=== PATIENT | female | born 1940 | race Caucasian/White ===

== ENCOUNTER 2017-12-26 20:18 | Emergency (ER) | payer MEDICARE ==
[~2017-12-26 20:18] MED LIST: ISOVUE-370 76%-LOCM 1 ML ONE
[2017-12-26 21:22] LABS: #Basophils 0.1 thou/uL (0.0-0.2); #Eosinphils 0.1 thou/uL (0.0-0.7); #Lymphocytes 2.2 thou/uL (1.20-3.40); #Monocytes 0.7 thou/uL (0.11-0.59); #Neutrophils 3.8 thou/uL (1.40-6.50); %Basophils 0.9 % (0.0-1.0); %Lymphocytes 32.1 % (21.0-51.0); %Monocytes 9.8 % (0.0-10.0); %Neutrophils 55.3 % (42.0-75.0); Hemoglobin 14.9 g/dL (12.0-16.0); Mean Corpuscular HGB CONC 35.4 g/dL (32.0-36.0); Mean Corpuscular Hemoglobin 33.3 pg (27.0-31.0); Mean Corpuscular Volume 94.1 fL (78.0-98.0); Mean Platelet Volume 6.5 fL (7.4-10.4); Platelet Count 165 thou/uL (130-400); RBC Distribution Width 11.8 % (11.5-14.5); Red Blood Cell (RBC) Count 4.47 mill/uL (4.20-5.40); White Blood Cell (WBC) Count 6.9 thou/uL (4.8-10.8)
[2017-12-26 21:36] LABS: ALT (SGPT) 24 U/L (8-55); AST (SGOT) 29 U/L (5-34); Albumin 4.7 g/dL (3.4-4.8); Alkaline Phosphatase 59 U/L (40-150); Anion Gap 16 mmol/L (10-20); BUN (Urea Nitrogen) 18 mg/dL (9.8-20.1); Bilirubin, Total 0.5 mg/dL (0.2-1.2); CK (CPK) 68 U/L (29-168); Calc. Creatinine Clearance 0 mL/min (70-130); Calcium 9.4 mg/dL (7.8-10.44); Carbon Dioxide 25 mmol/L (23-31); Chloride 105 mmol/L (98-107); Estimated GFR-MDRD 60; Globulin 2.3 g/dL (2.4-3.5); Glucose 100 mg/dL (83-110); Lipase 11 U/L (8-78); Sodium 142 mmol/L (136-145)
[2017-12-26 21:40] LABS: CKMB 1.9 ng/mL (0-6.6); Troponin I Less than 0.010 ng/mL (< 0.028)
--- NOTE | 2017-12-26 22:46 | ULT ---
RIGHT UPPER QUADRANT ULTRASOUND: Date: 12-26-17 Comparison: None. History: Right upper quadrant pain. Technique: Multiplanar grayscale sonographic imaging of the right upper quadrant provided. 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 The pancreas appears grossly unremarkable. No focal liver lesion or intrahepatic biliary dilatation. No gallbladder wall thickening or pericholecystic fluid. No gallstones are noted. The common bile duct measures 4 mm, within normal limits. Right kidney measures 9.7 cm craniocaudal dimension and demonstrates no stone, hydronephrosis, or mas s. IMPRESSION: 1. Unremarkable right upper quadrant ultrasound. POS: [facility]
--- NOTE | 2017-12-26 23:07 | CT ---
CT OF ABDOMEN AND PELVIS: Date: 12-26-17 Comparison: None. History: Right upper quadrant pain radiating to the back. Technique: Serial axial CT imaging obtained at 5 mm intervals from lung bases through pubic symphysis with IV contrast. Coronal reformatted imaging obtained. FINDINGS: The visualized lung bases are unremarkable. There is a small hiatal hernia noted. No free intraperito eldon air or fluid. The liver, gallbladder, spleen, pancreas, adrenal glands, and kidneys demonstrate no acute findings. There is mild fatty atrophy of the pancreas. There is mild descending colonic diverticulosis without evidence for diverticulitis. The appendix is normal. No evidence for bowel inflammatory change or bowel obstruction. There is no lymphadenopathy in the abdomen or pelvis. There is multilevel lower lumbar spine facet hypertrophic change. There is multilevel disc space narr owing with degenerative endplate change noted within the lower lumbar spine as well. IMPRESSION: Multiple incidental findings as detailed above. No acute findings are seen. POS: [facility]
[2017-12-26 23:16] LABS: Bilirubin Negative (Negative); Blood, Urine Small (Negative); Clarity CLOUDY (Clear); Glucose, Urine (Dipstick) Negative (Negative); Leukocyte Large (Negative); Nitrite Positive (Negative); Protein, Urine (Dipstick) Negative (Neg-Trace); Specific Gravity, Urine 1.012 (1.002-1.036); Urobilinogen 0.2 mg/dL (0.2-1.0)
[2017-12-26 23:17] LABS: Bacteria/HPF 4+ HPF (None Seen); Hyaline Casts/LPF 0-3 HYALINE CAST LPF (0-3 Hyaline); Squamous Epithelial None Seen HPF (0-3)
== END 2017-12-26 23:37 | disposition home or self-care (01) ==
LOC: ERS 20:18
DX: N39.0 Urinary tract infection, site not specified (principal); R10.13 Epigastric pain; E03.9 Hypothyroidism, unspecified; Z79.899 Other long term (current) drug therapy; I50.1 Left ventricular failure, unspecified
CPT/HCPCS: 36415; 74177; 76705; 80053; 81003; 81015; 82550; 82553; 83690; 84484; 85025; 87077; 87086; 87186; 93005

== ENCOUNTER 2018-08-29 14:25 | Outpatient (CLI) | payer MEDICARE | END 2018-08-29 14:26 | disposition home or self-care (01) | LOC: ULT 14:25 | PROVIDERS: ATTEND Internal Medicine | DX: R01.1 Cardiac murmur, unspecified (principal); I08.3 Combined rheumatic disorders of mitral, aortic and tricuspid valves | CPT/HCPCS: 93306 ==

== ENCOUNTER 2025-01-01 01:45 | Inpatient (IN) | payer MEDICARE ==
[2025-01-01 03:07] LABS: #Basophils 0.04 10x3/uL (0.0-0.2); #Eosinophils 0.19 10x3/uL (0.0-0.7); #Monocytes 0.62 10x3/uL (0.11-0.59); #Neutrophils 4.37 10x3/uL (1.40-6.50); %Basophils 0.6 % (0.0-1.0); %Eosinophils 2.8 % (0.0-10.0); %Lymphocytes 21.6 % (21.0-51.0); %Monocytes 9.3 % (0.0-10.0); %Neutrophils 65.6 % (42.0-75.0); Hematocrit 38.8 % (36.0-47.0); Hemoglobin 13.2 g/dL (12.0-16.0); Mean Corpuscular Hemoglobin 30.3 pg (27.0-31.0); Mean Corpuscular Volume 89.2 fL (78.0-98.0); Platelet Count 121 10x3/uL (130-400); Red Blood Cell (RBC) Count 4.35 mill/uL (4.20-5.40); White Blood Cell (WBC) Count 6.67 10x3/uL (4.8-10.8)
[2025-01-01 03:22] LABS: INR-International Normal Ratio 1.1; PTT 29.3 sec (22.9-36.1); Prothrombin Time 14.2 sec (12.0-14.7)
[2025-01-01 03:34] LABS: ALT (SGPT) 17 U/L (Less than 34); AST (SGOT) 28 U/L (11-34); Albumin 3.8 g/dL (3.1-4.5); Alkaline Phosphatase 67 U/L (40-110); Anion Gap 14 mmol/L (10-20); BUN (Urea Nitrogen) 24 mg/dL (9.8-20.1); Bilirubin, Total 0.5 mg/dL (0.3-1.2); Calc. Creatinine Clearance 0 mL/min (70-130); Calcium 8.8 mg/dL (7.8-10.44); Carbon Dioxide 24 mmol/L (23-31); Chloride 101 mmol/L (98-107); Globulin 2.1 g/dL (2.4-3.5); Glucose 100 mg/dL (83-110); Potassium 4.0 mmol/L (3.5-5.1); Sodium 135 mmol/L (136-145)
[2025-01-01 05:32] LABS: Magnesium 2.3 mg/dL (1.6-2.6)
[2025-01-01] MEDS ORDERED: Ketorolac Tromethamine 30 MG (1 mL) VIAL IVP PRN (08:45)
[2025-01-01] MEDS ORDERED: Acetaminophen 325 MG TAB PO PRN (08:45)
[2025-01-01] MEDS ORDERED: Iopamidol 370 76% 100 ML VIAL ONE (10:02)
[2025-01-01 10:31] VITALS: BMI 29.8
[2025-01-01] MEDS: Famotidine 20 MG TAB PO SCH (12:04)
[2025-01-01] MEDS: Gabapentin 300 MG CAP PO SCH (20:54)
[2025-01-01] MEDS: diphenhydrAMINE 25 MG CAP PO PRN (22:01)
[2025-01-02] MEDS: Spironolactone 25 MG TAB PO SCH (08:48)
[2025-01-02 16:31] VITALS: BMI 29.8
[2025-01-02] MEDS: Melatonin 3 MG TAB PO PRN (20:19)
[2025-01-03 05:55] LABS: Anion Gap 11 mmol/L (10-20); BUN (Urea Nitrogen) 18 mg/dL (9.8-20.1); Calc. Creatinine Clearance 59 mL/min (70-130); Calcium 8.8 mg/dL (7.8-10.44); Carbon Dioxide 26 mmol/L (23-31); Cardiac Risk 3.8 (Less than 4.5); Chloride 100 mmol/L (98-107); Cholesterol 152 mg/dl (< 200 Desired); Glucose 90 mg/dL (83-110); HDL Cholesterol 40 mg/dL (>60 Neg Risk); LDL Cholesterol, Calculated 95 mg/dL; Magnesium 2.0 mg/dL (1.6-2.6); Potassium 4.4 mmol/L (3.5-5.1); Sodium 133 mmol/L (136-145); Triglycerides 87 mg/dL (Less than 150)
[2025-01-03] MEDS: Aspirin 81 mg Enteric Coated Tablet PO SCH (08:22)
[2025-01-03 12:09] VITALS: BP 147/81; TEMP 97.9
== END 2025-01-03 18:12 | disposition home health service (06) | DRG 66 ==
LOC: ERS 01:45 → ERHOLD 06:54 → T4-A 09:49 → OBSVTOIN 01-02 17:30
PROVIDERS: ADMIT Student in an Organized Health Care Education/Training Program; ATTEND Hospitalist
DX: I63.9 Cerebral infarction, unspecified (principal); E78.5 Hyperlipidemia, unspecified; E03.9 Hypothyroidism, unspecified; Z96.653 Presence of artificial knee joint, bilateral; K21.9 Gastro-esophageal reflux disease without esophagitis; G62.9 Polyneuropathy, unspecified; M19.90 Unspecified osteoarthritis, unspecified site; M51.9 Unspecified thoracic, thoracolumbar and lumbosacral intervertebral disc disorder; R29.702 NIHSS score 2; Z79.899 Other long term (current) drug therapy; Z85.3 Personal history of malignant neoplasm of breast; Z98.890 Other specified postprocedural states; Z90.49 Acquired absence of other specified parts of digestive tract; Z79.890 Hormone replacement therapy
CPT/HCPCS: 36415; 70496; 70498; 70551; 72141; 72146; 72148; 80048; 80053; 80061; 83036; 83735; 83880; 84484; 85025; 85610; 85730; 93005; 94760; G0378; Q9967